=== PATIENT | female | born 1955 | race Caucasian/White ===

== ENCOUNTER → 2016-07-10 | Day surgery (SDC) | payer BC ==
[~2016-07-10] VITALS: Ht 165.1 cm; Wt 114.6 kg
[~2016-07-10] MED LIST: ACETAMINOPHEN/HYDROcodone 325 MG/5 MG TAB ONE; BIOT1SUB SL; BUPIVACAINE/EPINEPHRINE 0.25% PF 30 ML VIAL ONE; CALC0.5C6 PO; CITA20TA4 PO; CYCL1TAB29 PO; FURO1TAB62 PO; GELFOAM SIZE 100 ONE; HEPARIN SODIUM - SQ 10,000 UNITS/ML VIAL ONE; HYDR-3583 PO; INSULIN HUMAN REGULAR 1,000 UNITS/10 ML VIAL SQ PRN; LACTATED RINGER'S 1000 ML IV SCH; LEVEMIR SQ; LEVO50TA4 PO; LISI-515 PO; METOPROLOL TARTRATE 25 MG TAB PO PRN; MIDAZOLAM HCL 2 MG/2 ML VIAL ONE; NEOSTIGMINE 3 MG/3 ML SYR IV ONE; NOVOINJ3 SQ; NUCY150T PO; ONDANSETRON HCL 4 MG/2 ML VIAL IV PUSH ONE; PHENYLEPH/NS 1000 MCG/10 ML SYR IV ONE; PROPOFOL 200 MG/20 ML AMP IV ONE; PROTAMINE SULFATE 50 MG/5 ML VIAL ONE; ROSU20 PO; SODIUM CHLORID 0.9% 500 ML INJ 500 ML IV ONE; SODIUM CHLORID 0.9% 500 ML IV SCH; THROMBIN (TOPICAL) 5,000 UNIT VIAL ONE; ZOLP5TAB3 PO; ceFAZolin INJ 1,000 MG VIAL IV ONE; ePHEDrine/NS 25 MG/5 ML SYR IV ONE; fentaNYL CITRATE 250 MCG/5 ML AMP ONE
--- NOTE | 2016-07-10 06:52 | RADRPT ---
EXAM DATE/TIME: 07/10/2016 06:28 [place] COMPARISON: CHEST SINGLE AP, May 09, 2016, 9:24. INDICATIONS : Evaluate for pneumonia, pneumothorax or communicable disease, pre-op for left arm A-V shunt revision. MEDICAL HISTORY : Chronic obstructive pulmonary disease. Renal failure, chronic. SURGICAL HISTORY : None. ENCOUNTER: Initial ACUITY: 1 day PAIN SCORE: 0/10 LOCATION: Bilateral chest FINDINGS: A single view of the chest demonstrates the lungs to be symmetrically aerated without evidence of mas s, infiltrate or effusion. The cardiomediastinal contours are unremarkable. Spurs are seen in the th oracic spine. CONCLUSION: No acute disease. Jimmy Dutton MD on July 10, 2016 at 6:48 Board Certified Radiologist. This report was verified electronically.
[2016-07-10 06:55] VITALS: BP 190/82; PULSE 104; RESP 18; TEMP 97.5; O2SAT 100
[2016-07-10 07:23] LABS: AUTOMATED NEUTROPHIL # 4.7 TH/MM3 (1.8-7.7); BASOPHIL # 0.1 TH/MM3 (0-0.2); BASOPHIL % 0.8 % (0.0-2.0); EOSINOPHIL # 0.3 TH/MM3 (0-0.4); EOSINOPHIL % 4.1 % (0.0-4.0); HEMATOCRIT 28.3 % (35.0-46.0); HEMO FLAGS DIFF FINAL; LYMPH % 23.9 % (9.0-44.0); LYMPHOCYTE # 1.8 TH/MM3 (1.0-4.8); MEAN CELL VOLUME 86.5 FL (80.0-100.0); MEAN CORPUSCULAR HEMOGLOBIN 29.4 PG (27.0-34.0); MONO % 8.6 % (0.0-8.0); NEUT % 62.6 % (16.0-70.0); PLATELET COUNT 238 TH/MM3 (150-450); RED BLOOD COUNT 3.27 MIL/MM3 (4.00-5.30); RED CELL DISTRIBUTION WIDTH 13.5 % (11.6-17.2); WHITE BLOOD COUNT 7.5 TH/MM3 (4.0-11.0)
[2016-07-10 07:42] LABS: ALT (GPT) 31 U/L (10-53); ANION GAP 10 MEQ/L (5-15); AST (GOT) 17 U/L (15-37); BICARBONATE 19.3 MEQ/L (21.0-32.0); BLOOD UREA NITROGEN 58 MG/DL (7-18); CHLORIDE 110 MEQ/L (98-107); GLOMERULAR FILTRATION RATE 15 ML/MIN (>89); POTASSIUM 5.7 MEQ/L (3.5-5.1); SODIUM (NA) 139 MEQ/L (136-145)
[2016-07-10 07:44] LABS: ALKALINE PHOSPHATASE 185 U/L (45-117); TOTAL BILIRUBIN ADULT 0.4 MG/DL (0.2-1.0)
--- NOTE | 2016-07-10 09:59 | MP ---
cc: [facility] DATE OF SURGERY: 07/10/2016 PREOPERATIVE DIAGNOSIS End-stage renal disease. POSTOPERATIVE DIAGNOSIS End-stage renal disease. PROCEDURE Superficialization of left upper extremity brachiocephalic AV fistula. SURGEON Cira DIRECTOR OF COUNTERINTELLIGENCE Leonel ANESTHESIA General; 20 cc of 0.25% Marcaine with epinephrine. IV FLUIDS 800 cc crystalloid. ESTIMATED BLOOD LOSS Minimal. URINE OUTPUT Not calculated. COMPLICATIONS None. DISPOSITION To PACU. DETAILS OF PROCEDURE The patient's left upper extremity was prepped and draped in a sterile fashion after being under general endotracheal anesthesia. We did give the patient perioperative IV antibiotics. I made an incision over the previously marked left upper extremity cephalic vein that was greater than 1 cm in depth from just above the antecubital fossa towards the axilla. I used a scalpel and electrocautery and I dissected down to the cephalic vein, removing any periadventitial tissue with Metzenbaum scissors. I tied off side branches with small clips, medium clips and 3-0 ties as needed. I marked the vein anteriorly. I did use Surgicel and electrocautery to help out with hemostasis. I used interrupted [id number] 2-0 Vicryl absorbable sutures in order to close the deep layer of fat and then 3-0 interrupted deep dermal sutures in order to approximate the skin edges. I used two 4-0 Monocryl sutures in order to approximate the skin. I used Dermabond over the skin and a Kerlix dressing with a sling. The patient tolerated the procedure well. DO SONI Clemente/HASMUKH /9:27 AM /9:53 AM
[2016-07-10 11:00] VITALS: BP 121/64; PULSE 85; RESP 16; TEMP 98; O2SAT 95
== END | disposition home or self-care (01) ==
LOC: HSDC 06:09
PROVIDERS: ATTEND Surgery
DX: N18.6 End stage renal disease (principal); I12.0 Hypertensive chronic kidney disease with stage 5 chronic kidney disease or end stage renal disease; J44.9 Chronic obstructive pulmonary disease, unspecified; E11.9 Type 2 diabetes mellitus without complications
CPT/HCPCS: 01844; 36818; 71010; 76937; 80053; 82948; 85025; 86850; 86900; 86901; J0690; J1644; J1815; J2250; J2370; J2405; J2710; J2720; J3010; J7040